=== PATIENT | male | born 1975 | race Caucasian/White ===

== ENCOUNTER 2019-12-05 00:27 | Emergency (ER) | payer OTHER ==
[~2019-12-05] VITALS: Ht 182.9 cm; Wt 122.0 kg
[2019-12-05] MEDS ORDERED: IV NORMAL SALINE 1,000ML 1,000 ML IV SCH (00:42)
[2019-12-05] MEDS ORDERED: ONDANSETRON PF 4 MG/2 ML VIAL. IVP ONE (00:45)
[2019-12-05] MEDS ORDERED: FAMOTIDINE 20 MG/2 ML VIAL IVP ONE (00:45)
--- NOTE | 2019-12-05 00:51 | PHYS DOC ---
Past History Past Medical History: Hypertension Past Medical History Chronic alcohol use, obesity Past Surgical History: Appendectomy, Tonsillectomy Additional Past Surgical Histo: hernia Smoking: Non-smoker, Quit Less Than 1 Year Alcohol Use: Heavy (4-5 beers or well drinks a today) Drug Use: None General Adult EDM: Chief Complaint: diarrhea, short of air HPI: HPI: Patient is a 44 year old male who presents for evaluation of recurrent diarrhea over the past several months. He states there is a correlation between alcohol consumption and loose stools. Patient has history of chronic alcohol use and had stopped several months ago. After he resumed in the past few weeks the symptoms got worse. Patient denies any black, bloody or tarry stools. Furthermore patient has been having some progressive shortness of air with exertion over the past several days. Patient has a history of anxiety. Patient states his last drink was about 2 days ago. Furthermore patient is complaining of some right sided abdominal discomfort. Furthermore patient recently restarted lisinopril for treatment of hypertension in the past few days Review of Systems: Review of Systems: Constitutional: Denies fever or chills Eyes: Denies change in visual acuity HENT: Denies nasal congestion or sore throat Respiratory: Denies cough has shortness of breath Cardiovascular: Denies chest pain or edema GI: Right sided abdominal pain with nausea but no vomiting, no bloody stools but has recurrent diarrhea : Denies dysuria Musculoskeletal: Denies back pain or joint pain Integument: Denies rash Neurologic: Denies headache, focal weakness or sensory changes Endocrine: Denies polyuria or polydipsia Lymphatic: Denies swollen glands Psychiatric: Denies depression but has anxiety Heart Score: HEART Score for Chest Pain: HEART Score for Chest Pain Response (Comments) Value History Slighlty/Non-Suspicious 0 ECG Normal 0 Age < 45 0 Risk Factors 1 or 2 Risk Factors 1 Troponin < Normal Limit 0 Total 1 Risk Factors: Risk Factors: DM, Current or recent (<one month) smoker, HTN, HLP, family history of CAD, obesity. Risk Scores: Score 0 - 3: 2.5% MACE over next 6 weeks - Discharge Home Score 4 - 6: 20.3% MACE over next 6 weeks - Admit for Clinical Observation Score 7 - 10: 72.7% MACE over next 6 weeks - Early Invasive Strategies Current Medications: Current Meds: Current Medications Medications (Trade) Dose Ordered Sig/David Start Time Stop Time Status Last Admin Dose Admin Famotidine (Pepcid Vial) 20 mg 1X ONCE 12/05/19 00:45 12/05/19 00:46 UNV Ondansetron HCl (Zofran) 4 mg 1X ONCE 12/05/19 00:45 12/05/19 00:46 UNV Sodium Chloride 1,000 ml @ 1,000 mls/hr Q1H 12/05/19 00:42 12/05/19 01:41 UNV Physical Exam: PE: Constitutional: Well developed, well nourished, mild distress, non-toxic appearance. [] HENT: Normocephalic, atraumatic, bilateral external ears normal, oropharynx moist, no oral exudates, nose normal. [] Eyes: PERRL, EOMI, conjunctiva normal. [] Neck: Normal range of motion, no tenderness, supple, no stridor. [] Cardiovascular:Heart rate regular rhythm, no murmur [] Lungs & Thorax: Bilateral breath sounds clear to auscultation [] Abdomen: Bowel sounds normal, soft, minimal right upper and lower abd tenderness to palpation, no masses, no pulsatile masses. [] Skin: Warm, dry, no erythema, no rash. [] Back: No tenderness, no CVA tenderness. [] Extremities: No tenderness, no cyanosis, no clubbing, ROM intact, no edema. [] Neurologic: Alert and oriented X 3, normal motor function, normal sensory function, no focal deficits noted. [] Psychologic: anxious affect, judgement normal, mood normal. [] Current Patient Data: Labs: Laboratory Tests Test 12/05/19 00:45 12/05/19 00:50 12/05/19 01:29 White Blood Count 7.6 x10^3/uL Red Blood Count 5.08 x10^6/uL Hemoglobin 16.4 g/dL Hematocrit 48.0 % Mean Corpuscular Volume 94 fL Mean Corpuscular Hemoglobin 32 pg Mean Corpuscular Hemoglobin Concent 34 g/dL Red Cell Distribution Width 12.8 % Platelet Count 241 x10^3/uL Neutrophils (%) (Auto) 72 % Lymphocytes (%) (Auto) 17 % Monocytes (%) (Auto) 10 % Eosinophils (%) (Auto) 1 % Basophils (%) (Auto) 1 % Neutrophils # (Auto) 5.5 x10^3uL Lymphocytes # (Auto) 1.3 x10^3/uL Monocytes # (Auto) 0.8 x10^3/uL Eosinophils # (Auto) 0.0 x10^3/uL Basophils # (Auto) 0.0 x10^3/uL Sodium Level 140 mmol/L Potassium Level 3.8 mmol/L Chloride Level 102 mmol/L Carbon Dioxide Level 28 mmol/L Anion Gap 10 Blood Urea Nitrogen 13 mg/dL Creatinine 1.0 mg/dL Estimated GFR (Cockcroft-Gault) 81.6 BUN/Creatinine Ratio 13 Glucose Level 103 mg/dL Calcium Level 9.1 mg/dL Total Bilirubin 0.7 mg/dL Aspartate Amino Transf (AST/SGOT) 38 U/L Alanine Aminotransferase (ALT/SGPT) 88 U/L Alkaline Phosphatase 93 U/L Troponin I Quantitative < 0.017 ng/mL Total Protein 7.7 g/dL Albumin 3.8 g/dL Albumin/Globulin Ratio 1.0 Lipase 194 U/L Urine Collection Type Unknown Urine Color Yellow Urine Clarity Clear Urine pH 5.5 Urine Specific [place] >=1.030 Urine Protein 100 mg/dl Urine Glucose (UA) Neg mg/dL Urine Ketones (Stick) Trace mg/dL Urine Blood Trace Urine Nitrite Neg Urine Bilirubin Neg Urine Urobilinogen Dipstick 0.2 mg/dL Urine Leukocyte Esterase Neg Urine RBC 0 /HPF Urine WBC Rare /HPF Urine Squamous Epithelial Cells Occ /LPF Urine Bacteria 0 /HPF Stool Occult Blood Negative Current Medications Medications (Trade) Dose Ordered Sig/David Route PRN Reason Start Time Stop Time Status Last Admin Dose Admin Sodium Chloride 1,000 ml @ 1,000 mls/hr Q1H IV 12/05/19 00:42 12/05/19 01:41 DC 12/05/19 01:21 Ondansetron HCl (Zofran) 4 mg 1X ONCE IVP 12/05/19 00:45 12/05/19 01:14 DC 12/05/19 01:21 Famotidine (Pepcid Vial) 20 mg 1X ONCE IVP 12/05/19 00:45 12/05/19 01:14 DC 12/05/19 00:45 Iohexol (Omnipaque 300 Mg/ml) 75 ml 1X ONCE IV 12/05/19 01:45 12/05/19 01:46 DC 12/05/19 01:53 Info (Do NOT chart on this entry -- for MONITORING) 1 each PRN DAILY PRN MC SEE COMMENTS 12/05/19 01:45 12/07/19 01:44 EKG: EKG: EKG read at 0059 AM, normal sinus rhythm, rate high 90s, essentially normal EKG with flattened T waves lead aVL, not STEMI [] Radiology/Procedures: Radiology/Procedures: [address] [address] IMAGING REPORT Signed PATIENT: ROBSON RED ACCOUNT: [id number] : 1975 LOCATION: ER AGE: 44 SEX: M EXAM STATUS: REG ER ORD. PHYSICIAN: DEION ANTON DO REASON: abd pain, diarrhea, short of air PROCEDURE: ACUTE ABDOMEN SERIES INDICATION: Reason: abd pain, diarrhea, short of air / Spl. Instructions: / History: COMPARISON: Chest x-ray from June 30, 2019 IMPRESSION: 3 views of the chest and abdomen obtained. Cardiac silhouette is similar to prior. Mild prominence bilateral pulmonary hilum again seen. No definite new region of consolidation to suggest pneumonia. There scattered throughout the bowel in a nonspecific but not grossly obstructed Electronically signed by: Kylee Garcia MD (12/05/2019 1:25 AM) [id number] DICTATED AND SIGNED BY: KYLEE GARCIA MD DATE: 12/05/19 012 CC: PCP,UNKNOWN; DEION ANTON DO ~ [] Impressions: [address] [address] IMAGING REPORT Signed PATIENT: ROBSON RED ACCOUNT: [id number] : 1975 LOCATION: ER AGE: 44 SEX: M EXAM STATUS: REG ER ORD. PHYSICIAN: DEION ANTON DO REASON: RLQ pain, recurrent diarrhea. Hx: Appy, hernia repair PROCEDURE: CT ABD PELV W/ IV CONTRST ONLY INDICATION: Reason: RLQ pain, recurrent diarrhea. Hx: Appy, hernia repair / Spl. Instructions: / History: COMPARISON: None. TECHNIQUE: Axial CT images obtained through the abdomen and pelvis with contrast. One or more of the following individualized dose reduction techniques were utilized for this examination: 1. Automated exposure control; 2. Adjustment of the mA and/or kV according to patient size; 3. Use of iterative reconstruction technique. FINDINGS: Linear opacity right lung base could be scarring or atelectasis. Abdominal aorta is not aneurysmal. Fat-containing inguinal hernias. Liver is low density. Nonspecific can be seen with fatty infiltration. Mild wall thickening at the fundus of the gallbladder, can be seen with polyp or hyperplastic cholecystosis. No peripancreatic fluid collection. Spleen unremarkable. No hydronephrosis. Urinary bladder is decompressed. No dilated loops of bowel to suggest obstruction. Fat-containing umbilical hernia. Degenerative changes of the spine. IMPRESSION: * No evidence of bowel obstruction or hydronephrosis Electronically signed by: Kylee Garcia MD (12/05/2019 2:37 AM) [id number] DICTATED AND SIGNED BY: KYLEE GARCIA MD DATE: 12/05/19236 CC: PCP,UNKNOWN; DEION ANTON DO ~ Course & Med Decision Making: Course & Med Decision Making Pertinent Labs and Imaging studies reviewed. (See chart for details) [] Dragon Disclaimer: Dragon Disclaimer: This electronic medical record was generated, in whole or in part, using a voice recognition dictation system. 0140 stable, feeling somewhat better at this time. In light of patient's ongoing abdominal pain on the right side as well as recurrent diarrhea CT scan abdomen pelvis was ordered for further assessment. Stool sent for C. difficile and stool guaiac Departure Departure: Impression: Primary Impression: Abdominal pain, right lower quadrant Additional Impressions: Diarrhea Qualified Codes: R19.7 - Diarrhea, unspecified Alcohol use Disposition: HOME/RESIDENCE PRIOR TO ADM Condition: STABLE Referrals: PCP,UNKNOWN (PCP) ALTON LACY MD Patient Instructions: Abdominal Pain, Alcohol Problems, Diarrhea Additional Instructions: Drink plenty fluids, rest, medication as directed, seek medical help to maintain diminished alcohol intake Scripts Famotidine (PEPCID) 20 Mg Tablet 1 TAB PO BID for gastritisi for 14 Days, #28 TAB 0 Refills Prov: DEION ANTON DO 12/05/19 Ondansetron Hcl (ZOFRAN) 4 Mg Tablet 1 TAB PO PRN Q6-8HRS for vomiting, #12 TAB Prov: DEION ANTON DO 12/05/19 Justification of Admission: Justification of Admission: Justification of Admission Dx: N/A DEION ANTON DO Dec 05, 2019 00:51
[2019-12-05 01:10] LABS: BASO % 1 % (0-3); EOS % 1 % (0-3); HEMOGLOBIN 16.4 g/dL (13.0-17.5); LYMPH # 1.3 x10^3/uL (1.0-4.8); LYMPH % 17 % (24-48); MEAN CORPUSCULAR HEMOGLOBIN 32 pg (25-35); MEAN CORPUSCULAR HGB CONC 34 g/dL (31-37); MEAN CORPUSCULAR VOLUME 94 fL (79-100); MONO # 0.8 x10^3/uL (0.0-1.1); MONO % 10 % (0-9); NEUT # 5.5 x10^3uL (1.8-7.7); NEUT % 72 % (31-73); PLATELET COUNT 241 x10^3/uL (140-400); RED BLOOD COUNT 5.08 x10^6/uL (4.30-5.70); RED CELL DISTRIBUTION WIDTH 12.8 % (11.5-14.5); WHITE BLOOD COUNT 7.6 x10^3/uL (4.0-11.0)
[2019-12-05 01:16] VITALS: BP 118/81
[2019-12-05 01:17] LABS: CALCIUM 9.1 mg/dL (8.5-10.1); GFR 81.6; POTASSIUM 3.8 mmol/L (3.5-5.1)
[2019-12-05 01:23] LABS: ALBUMIN 3.8 g/dL (3.4-5.0); TOTAL BILIRUBIN 0.7 mg/dL (0.2-1.0); TOTAL PROTEIN 7.7 g/dL (6.4-8.2)
[2019-12-05 01:26] LABS: BACTERIA,URINE 0 /HPF (0-FEW); BILIRUBIN,URINE NEG (NEG); CLARITY,URINE CLEAR; COLOR,URINE YELLOW; GLUCOSE,URINE NEG (NEG); NITRITE,URINE NEG (NEG); RBC,URINE 0 /HPF (0-2); SQUAMOUS EPITHELIAL CELL,UR OCC /LPF; UROBILINOGEN,URINE 0.2 mg/dL (0.2 mg/dL); WBC,URINE RARE /HPF (0-4)
--- NOTE | 2019-12-05 01:28 | RAD ---
INDICATION: Reason: abd pain, diarrhea, short of air / Spl. Instructions: / History: COMPARISON: Chest x-ray from June 30, 2019 IMPRESSION: 3 views of the chest and abdomen obtained. Cardiac silhouette is similar to prior. Mild prominence bilateral pulmonary hilum again seen. No definite new region of consolidation to suggest pneumonia. There scattered throughout the bowel in a nonspecific but not grossly obstructed Electronically signed by: Tommy Mckinley MD (12/05/2019 1:25 AM) [id number]
[2019-12-05] MEDS ORDERED: CONTRAST GIVEN MC PRN (01:45)
[2019-12-05] MEDS ORDERED: IOHEXOL 300 MG/ML 75 ML VIAL. IV ONE (01:45)
[2019-12-05 01:55] LABS: FECAL OB PT NEGATIVE (NEG)
--- NOTE | 2019-12-05 02:39 | RAD ---
INDICATION: Reason: RLQ pain, recurrent diarrhea. Hx: Appy, hernia repair / Spl. Instructions: / History: COMPARISON: None. TECHNIQUE: Axial CT images obtained through the abdomen and pelvis with contrast. One or more of the following individualized dose reduction techniques were utilized for this examination: 1. Automated exposure control; 2. Adjustment of the mA and/or kV according to patient size; 3. Use of iterative reconstruction technique. FINDINGS: Linear opacity right lung base could be scarring or atelectasis. Abdominal aorta is not aneurysmal. Fat-containing inguinal hernias. Liver is low density. Nonspecific can be seen with fatty infiltration. Mild wall thickening at the fundus of the gallbladder, can be seen with polyp or hyperplastic cholecystosis. No peripancreatic fluid collection. Spleen unremarkable. No hydronephrosis. Urinary bladder is decompressed. No dilated loops of bowel to suggest obstruction. Fat-containing umbilical hernia. Degenerative changes of the spine. IMPRESSION: * No evidence of bowel obstruction or hydronephrosis Electronically signed by: Tommy Mckinley MD (12/05/2019 2:37 AM) [id number]
[2019-12-05] MEDS ORDERED: FAMO-63 PO (02:48)
[2019-12-05] MEDS ORDERED: ONDA4TAB7 PO (02:48)
--- NOTE | 2019-12-05 08:05 | EKG ---
[address] [address] Test Date: 2019-12-05 Test Time: 00:55:09 Pat Name: ROBSON RED Department: Room: Gender: Private Detective: : 1975 Requested By: DEION ANTON Order Number: [id number] Reading MD: Cedric Carter MD Measurements Intervals [place] Rate: P: ME: QRS: QRSD: T: QT: QTc: Interpretive Statements SR Electronically Signed On 12-09-2019 13:21:30 CDT by Cedric Carter MD
== END 2019-12-05 02:50 | disposition home or self-care (01) ==
LOC: ER 00:27
DX: R19.7 Diarrhea, unspecified (principal); R10.31 Right lower quadrant pain; F10.10 Alcohol abuse, uncomplicated; E66.9 Obesity, unspecified; Z68.36 Body mass index [BMI] 36.0-36.9, adult; Z90.89 Acquired absence of other organs; Z87.891 Personal history of nicotine dependence; Y90.9 Presence of alcohol in blood, level not specified
CPT/HCPCS: 36415; 74022; 74177; 80053; 81001; 82274; 83690; 84484; 85025; 87493; 93005; 96361; 96374; 96375; 99285; J2405; J3490; Q9967; J7030